=== PATIENT | female | born 1960 | race African-American/Black ===

== ENCOUNTER 2018-07-19 14:32 | Outpatient (RCR) | payer MEDICARE, MEDICAID | END 2018-07-24 | disposition home or self-care (01) | LOC: WCC 14:32 | DX: L97.822 Non-pressure chronic ulcer of other part of left lower leg with fat layer exposed (principal); I87.012 Postthrombotic syndrome with ulcer of left lower extremity; M34.9 Systemic sclerosis, unspecified; I10 Essential (primary) hypertension; Z86.73 Personal history of transient ischemic attack (TIA), and cerebral infarction without residual deficits | CPT/HCPCS: C5275; Q4102 ==

== ENCOUNTER 2018-07-26 14:26 | Outpatient (RCR) | payer MEDICARE, MEDICAID | END 2018-08-23 | disposition home or self-care (01) | LOC: WCC 14:26 | DX: L97.822 Non-pressure chronic ulcer of other part of left lower leg with fat layer exposed (principal); I87.012 Postthrombotic syndrome with ulcer of left lower extremity; M34.9 Systemic sclerosis, unspecified; I10 Essential (primary) hypertension; E11.9 Type 2 diabetes mellitus without complications; Z86.73 Personal history of transient ischemic attack (TIA), and cerebral infarction without residual deficits | CPT/HCPCS: 87070; 87181; 87205; G0463 ==